=== PATIENT | male | born 1955 | race Caucasian/White ===

== ENCOUNTER 2020-06-02 00:32 | Outpatient (CLI) | payer MEDICARE, MEDICAID, SELFPAY ==
--- NOTE | 2020-06-02 10:30 | DI.NM_ITS ---
APPROVED REPORT Exam: Exercise Treadmill Patient Location: Out-Patient Room/Bed: BMI: 29.96 Baseline Rhythm: Sinus Bradycardia Indications: Chest Pain, CAD, Dyspnea, CAD s/p PCI Medical History Medical History: Atrial Fibrillation, CAD s/p VA, CAD s/p stent, HTN, Hyperlipidemia Cardiac Medications: Aspirin, Diltiazem, Metoprolol, Simvastatin/ Zocor Allergies: No known drug allergies Cardiac Risk Factors: HTN, Hyperlipidemia, CVD, FHX of CAD Previous Cardiac Procedures: PCI, Myocardial infarction Pretest Chest Pain Characteristics: No chest pain Exercise History: Physically active Lung Sounds: Clear to auscultation Heart Sounds: Regular Stress Test Details Test: Exercise stress testing was performed using a Theo protocol. Nuclear Acquisition: Rest Tc-99m/Stress Tc-99m 1 day Rest Isotope: Tc-99m Sestamibi. Dose: 12.1 Date: 06/02/2020 Injection Time: 1040 Stress Isotope: Tc-99m Sestamibi. Dose: 36.1 Date: 06/02/2020 Injection Time: 1316 HR Resting HR Supine: 52 bpm Max Heart Rate (APMHR): 154 bpm Resting HR Standin bpm Target HR (85% APMHR): 130 bpm Max HR Achieved: 136 bpm % of APMHR: 88 Recovery HR: 87 bpm HR response to stress: Normal HR response to stress BP Resting BP Supine: 150/88 mmHg Resting BP Standin/90 mmHg Max BP: 186/80 mmHg Recovery BP: 148/82 mmHg BP response to stress: Normal blood pressure response to stress. ECG Resting ECG: Sinus Bradycardia Stress ECG: Sinus Tachycardia Maximum ST Deviation: 0 mm Arrhythmia: VPC's Recovery ECG: Sinus Rhythm Recovery Arrhythmia: VPC Clinical Reason for Termination: Target HR Achieved, Fatigue Stress Symptoms: Chest pain Exercise duration: 6 min10 sec Highest Stage Reached: Stage 3: 3.4 mph at 14% grade. Exercise capacity: 7.28 METs Functional Capacity: Mildly deminished capacity Stress ECG Conclusion 1. Resting electrocardiogram was normal. Patient exercised on the Theo protocol and completed a wor kload of 7.28 METS 2. He achieved 88% of predicted heart rate for age. Heart rate and blood pressure response to exerci se was normal 3. Electrocardiographically there was no evidence of myocardial ischemia 4. Sporadic PVCs were noted Critical Notification Critical Value: No MPI Conclusion Normal myocardial perfusion without evidence of ischemia or infarction Calculated EF by this technique was 25% Radiologist Interpretation Radiologist agrees with Transport Medic's Interpretation. Radiologist Interpretation by: Matthew Barnes MD Interpretation Date/Time: 06/08/2020 14:54:02
== END 2020-06-02 00:52 ==
PROVIDERS: PCP Nurse Practitioner Family; Visit Provider Internal Medicine Interventional Cardiology
DX: R06.00 Dyspnea, unspecified (principal); I48.91 Unspecified atrial fibrillation; R07.9 Chest pain, unspecified; E78.5 Hyperlipidemia, unspecified; I10 Essential (primary) hypertension; I25.10 Atherosclerotic heart disease of native coronary artery without angina pectoris; Z82.49 Family history of ischemic heart disease and other diseases of the circulatory system; Z95.5 Presence of coronary angioplasty implant and graft; I25.2 Old myocardial infarction; I49.3 Ventricular premature depolarization
CPT/HCPCS: 78452; 93016; 93018; 93017

== ENCOUNTER 2023-07-26 09:19 | Outpatient (CLI) | payer MEDICARE, MEDICAID, SELFPAY ==
--- NOTE | 2023-07-26 06:00 | DI.RAD_ITS ---
Exam(s) XR PAIN CLINIC LUMBAR SP 2V EXAM: XR PAIN CLINIC LUMBAR SP 2V CLINICAL HISTORY: Dx: Lumbar Spondylosis TECHNIQUE: 2D and realtime digital imaging was performed. CONTRAST MATERIAL: Refer to procedure report. COMPARISON: No exams were available for comparison FINDINGS: Fluoroscopy was provided for Dr. Champagne during the performance of a lumbar medial branch block. Chrissy law refer to the procedure report for complete details. Ka,r=16.6 mGy IMPRESSION:
[2023-07-26 09:49] VITALS: BP 128/97; PULSE 66; RESP 20; TEMP 36.6; O2SAT 98
[2023-07-26] MEDS: Omnipaque 240 MG/ML 50 ML BTL IJ (10:48)
[2023-07-26] MEDS: Bupivacaine 0.5% Pres-Free 10 ML VIAL IJ (10:49)
[2023-07-26 10:52] VITALS: BP 143/96; PULSE 64; RESP 15; O2SAT 97
--- NOTE | 2023-07-26 14:31 | PDOC.PAIN ---
Date of service: 07/26/23 Time of Service: 10:30 Pain Managment Procedure Note Procedure Note Procedure Note: PROCEDURE NOTE Bilateral Lumbar Medial Branch Blocks Date of Service: July 26, 2023 Patient: MARYAN DAS Provider: Saurabh Champagne DO, MPH MARYAN DAS has been referred to the [facility] for lumbar medial branch blocks. Pre-operative diagnosis: Lumbar Spondylosis without Myelopathy Post-operative diagnosis: Same Pre-procedure pain: VAS= 5/10 COMMENTS: I previously evaluated him on 04/06/23 and his symptoms are the same today as it was on that day. VONNIE was interviewed and the medical records were reviewed. There were no medical, pharmacologic, radiographic or other structural contraindications to attempting fluoroscopically guided local anesthetic lumbar medial branch blocks. Risks and potential side effects were discussed. I also discussed the potential benefit(s) of the procedure with MARYAN, and voiced concerns were addressed. After MARYAN was completely informed about the procedure, the printed consent form was signed. A standard time-out procedure was performed. MARYAN was placed in the prone position on the fluoroscopy table. Automated blood pressure cuff and pulse oximeter were applied. The skin entry points for approaching the anatomic target points of the segmental medial branches of bilateral L3,L4,L5 were identified with fluoroscopy and marked. The skin at the target site area was thoroughly prepared with Chlorhexadine. The skin was then draped. Next, a 25 gauge 3.5 spinal needle was placed under fluoroscopic guidance down on to the target point (the articular pillar) for each respective segmental medial branch. Position was confirmed in A/P and lateral views. Aspiration revealed no blood or clear fluid. Next, 0.25ml of omnipaque 240 was injected at each level. No contrast following a vascular or neural pattern was visualized under continuous fluoroscopy. Next, 0.25 ml of preservative-free 0.5% bupivicaine was injected at each level. There was no unusual discomfort expressed by MARYAN. The needles were withdrawn without difficulty. (49 mls of Omnipaque was wasted) MARYAN was observed and was without hemodynamic, neurologic, or allergic reactions.? Fluoroscopic images were digitally archived. Provacative testing using the Modified Barry's facet loading test- Left side Right Side Directly before the block VAS (0-10) = 5/10 VAS (0-10) = 5/10 Five minutes after the block VAS (0-10) = 0/10 VAS (0-10) = 0/10 Percentage relief obtained with this diagnostic block 100% 100% Any improved physical functioning directly after the blocks? Able to move with ease. Follow up plans and appointments were discussed with MARYAN. MARYAN was instructed to keep careful note of how the usual pain was modified by these injections. Specifically, to keep a pain diary for the next 4 hours using a numeric pain scale of 0-10 and report these results. Post procedure instruction was given as documented in the nursing documentation and having met discharge criteria, the patient was [facility] from the [facility]. Based on the medial branches blocked today, if they patient has adequate relief and we are able to proceed to radiofrequency ablation, the treatment should result in the denervation of the bilateral L4-L5 and L5-S1 facet joints. We would expect to denervate a total of 4 facets during the radiofrequency ablation. COMMENTS: No apparent complications. Post-procedure pain: VAS= 0/10 MARYAN will call back with 0-4 hour post-procedure pain scores. I personally performed the entire procedure. SAURABH CHAMPAGNE DO, MPH ABPM&R-subspecialty board certification in Pain Medicine [facility] [facility]
== END 2023-07-26 09:20 | disposition home or self-care (01) ==
LOC: PC 09:20
PROVIDERS: PCP Nurse Practitioner Family; Visit Provider Preventive Medicine Occupational Medicine
DX: M54.50 Low back pain, unspecified (principal); M47.816 Spondylosis without myelopathy or radiculopathy, lumbar region
CPT/HCPCS: 64493; 64494; 72100; Q9967

== ENCOUNTER 2023-09-13 08:28 | Outpatient (CLI) | payer MEDICARE, MEDICAID, SELFPAY ==
--- NOTE | 2023-09-13 06:00 | DI.RAD_ITS ---
Exam(s) XR PAIN CLINIC LUMBAR SP 2V EXAM: XR PAIN CLINIC LUMBAR SP 2V CLINICAL HISTORY: Dx: Lumbar Spondylosis TECHNIQUE: 2D and realtime digital imaging was performed. CONTRAST MATERIAL: Refer to procedure report. COMPARISON: No exams were available for comparison FINDINGS: Fluoroscopy was provided for Dr. Champagne during the performance of a lumbar medial branch block. Chrissy law refer to the procedure report for complete details. Ka,r=19.8 mGy IMPRESSION:
[2023-09-13 08:44] VITALS: BP 164/89; PULSE 62; RESP 20; TEMP 36.7; O2SAT 98
--- NOTE | 2023-09-13 09:45 | PDOC.PAIN_ITS ---
Date of service: 09/13/23 Time of Service: 09:45 Pain Managment Procedure Note Procedure Note Procedure Note: PROCEDURE NOTE Bilateral Lumbar Medial Branch Blocks #2 Date of Service: September 13, 2023 Patient: MARYAN DAS Provider: Saurabh Champagne DO, MPH MARYAN DAS has been referred to the [facility] for lumbar medial branch blocks. Pre-operative diagnosis: Lumbar Spondylosis without Myelopathy Post-operative diagnosis: Same Pre-procedure pain: VAS= 8/10 COMMENTS: He did very well with his first LMBBs VONNIE was interviewed and the medical records were reviewed. There were no medical, pharmacologic, radiographic or other structural contraindications to attempting fluoroscopically guided local anesthetic lumbar medial branch blocks. Risks and potential side effects were discussed. I also discussed the potential benefit(s) of the procedure with MARYAN, and voiced concerns were addressed. After MARYAN was completely informed about the procedure, the printed consent form was signed. A standard time-out procedure was performed. MARYAN was placed in the prone position on the fluoroscopy table. Automated blood pressure cuff and pulse oximeter were applied. The skin entry points for approaching the anatomic target points of the segmental medial branches of bilateral L3,L4,L5 were identified with fluoroscopy and marked. The skin at the target site area was thoroughly prepared with Chlorhexadine. The skin was then draped. Next, a 25 gauge 3.5 spinal needle was placed under fluoroscopic guidance down on to the target point (the articular pillar) for each respective segmental medial branch. Position was confirmed in A/P and lateral views. Aspiration revealed no blood or clear fluid. Next, 0.25ml of omnipaque 240 was injected at each level. No contrast following a vascular or neural pattern was visualized under continuous fluoroscopy. Next, 0.25 ml of preservative-free 0.5% bupivicaine was injected at each level. There was no unusual discomfort expressed by MARYAN. The needles were withdrawn without difficulty. (49 mls of Omnipaque was wasted) MARYAN was observed and was without hemodynamic, neurologic, or allergic reactions.? Fluoroscopic images were digitally archived. Provacative testing using the Modified Barry's facet loading test- Left side Right Side Directly before the block VAS (0-10) = 8/10 VAS (0-10) = 8/10 Five minutes after the block VAS (0-10) = 2/10 VAS (0-10) = 2/10 Percentage relief obtained with this diagnostic block 80% 80% Any improved physical functioning directly after the blocks? Able to move his back with ease. Follow up plans and appointments were discussed with MARYAN. MARYAN was instructed to keep careful note of how the usual pain was modified by these injections. Specifically, to keep a pain diary for the next 4 hours using a numeric pain scale of 0-10 and report these results. Post procedure instruction was given as documented in the nursing documentation and having met discharge criteria, the patient was [facility] from the [facility]. Based on the medial branches blocked today, if they patient has adequate relief and we are able to proceed to radiofrequency ablation, the treatment should result in the denervation of the bilateral L4-L5 and L5-S1 facet joints. We would expect to denervate a total of 4 facets during the radiofrequency ablation. COMMENTS: No apparent complications. Post-procedure pain: VAS= 2/10 MARYAN will call back with 0-4 hour post-procedure pain scores. I personally performed the entire procedure. SAURABH CHAMPAGNE DO, MPH ABPM&R-subspecialty board certification in Pain Medicine [facility]
[2023-09-13 09:52] VITALS: BP 130/91; PULSE 63; RESP 16; O2SAT 95
[2023-09-13] MEDS: Bupivacaine 0.5% Pres-Free 10 ML VIAL IJ (10:22)
[2023-09-13] MEDS: Omnipaque 240 MG/ML 50 ML BTL IJ (10:23)
== END 2023-09-13 08:29 | disposition home or self-care (01) ==
LOC: PC 08:28
PROVIDERS: PCP Nurse Practitioner Family; Visit Provider Preventive Medicine Occupational Medicine
DX: M54.50 Low back pain, unspecified (principal); M47.816 Spondylosis without myelopathy or radiculopathy, lumbar region
CPT/HCPCS: 00123; 64493; 64494; 72100; Q9967

== ENCOUNTER 2023-10-12 08:35 | Outpatient (CLI) | payer MEDICARE, MEDICAID, SELFPAY ==
[2023-10-12 09:00] VITALS: BP 139/84; PULSE 100; RESP 20; TEMP 36.7; O2SAT 96
[2023-10-12] MEDS: fentaNYL 100 MCG/2 ML VIAL IVP ×2 (09:47→10:09)
[2023-10-12] MEDS: Midazolam 2 MG/2 ML VIAL IVP (09:47)
[2023-10-12] MEDS: Lactated Ringers 500 ML 80 ML IV ×2 (09:47→13:47)
[2023-10-12 10:21] VITALS: BP 139/87; PULSE 66; RESP 18; O2SAT 98
--- NOTE | 2023-10-12 10:25 | DI.RAD_ITS ---
Exam(s) XR PAIN CLINIC LUMBAR SP 2V EXAM: XR PAIN CLINIC LUMBAR SP 2V CLINICAL HISTORY: DX: Lumbar spondylosis. TECHNIQUE: Fluoroscopy was provided for the referring physician for guidance with performing pain cl inic injection procedure. COMPARISON: No exams were available for comparison FINDINGS: Please see procedure note for details. Fluoro time: 66.7 seconds RADIATION DOSE DELIVERED: Kar=19.2 mGy
[2023-10-12] MEDS: diphenhydrAMINE 50 MG/ML VIAL IVP ×3 (10:35→11:15)
--- NOTE | 2023-10-12 10:38 | PDOC.PAIN_ITS ---
Date of service: 10/12/23 Time of Service: 10:38 Pain Managment Procedure Note Procedure Note Procedure Note: PROCEDURE NOTE BILATERAL LUMBAR RADIOFREQUENCY ABLATION Date of Service: October 12, 2023 Patient:MARYAN WADE? Provider:? Saurabh Champagne DO, MPH MARYAN DAS has been [facility] to the [facility] for Bilateral Lumbar Radiofrequency Ablation with the [employer]vanos Machine.? Pre Operative Diagnosis: Lumbosacral Spondylosis without Myelopathy Post Operative Diagnosis: Same Pre procedure pain; VAS= 7/10 Comments: He has two successful LMBBs. His pain has returned. PROCEDURE: Radiofrequency Ablation of medial branches - bilateral L3, L4, L5 and lateral branches of bilateral S1. MARYAN?was interviewed and the medical record was reviewed.? There were no medical, pharmacologic, radiographic or other structural contraindications to attempting fluoroscopically guided BILATERAL Lumbar Radiofrequency Ablation .?Risks and expected side effects as well as potential benefit of the procedure were reviewed with MARYAN, and the patient's voiced concerns were addressed.? The printed consent form was signed.? Standard time-out procedure was performed. MARYAN was brought into the fluoroscopy suite and positioned into the prone position on the fluoroscopy table and allowed to adjust to a position of comfort. A grounding pad was placed on the left abdomen. The sterile field was prepared using chlorhexidine preparation of the skin and sterile draping. Local anesthesia superficial and deep was provided by local infiltration of 2% lidocaine. A 17g 100 mm radiofrequency introducer needle was placed to the planned anatomic targets guided with intermittent fluoroscopy with a perpendicular approach to terminally place at the junction of the superior articular process and the transverse process of the bilateral L4, L5, the base of the sacral ala on the bilateral for the L5 medial branch nerve and the area between base of the sacral ala to the S1 foramen bilaterally. The stylets were removed and radiofrequency probes with a 4mm active tip were then inserted. Needle tip position of the probes was verified in the AP, oblique, and lateral views. At each site, the medial branch nerve was stimulated at 2 Hz to a maximum 1-2 volts determined to finalize safe needle and electrode placement. The patient was awake and responsive during this portion of the procedure. Each target was anesthetized with 1-2 mL of 2 % Lidocaine for anesthesia for lesioning and then each target was lesioned at 80 degrees Celsius for 2 minutes and 30 seconds. Tissue impedances were noted to be between 250 and 500 Ohms. There was no unusual discomfort expressed by MARYAN. I then injected 1/4 cc of Depomedrol (40 mg/cc) followed by 0.5 cc of 0.5% Bupivacaine at each site. The needles were withdrawn without difficulty and bandages placed over the needle placement sites, the patient was observed and was without hemodynamic, neurologic, or allergic reactions. Fluoroscopic images were digitally archived. POST PROCEDURE EVALUATION: IMPRESSION: 1. Summary of procedure. Medication given is documented in the MAR. 2. Follow up plan: MARYAN to contact [facility] as needed.?This procedure may be repeated if the patient achieves at least 50% improvement in pain/function for at least 6 months. 3. Estimated Blood Loss: <5 mls 4. Fluoroscopy time: Documented in the EMR. Follow up plans and appointments were discussed with the MARYAN. Post procedure instruction was given as documented in nursing documentation and having met discharge criteria, MARYAN was discharged from the [facility]. COMMENTS: He did breakout in hives after the procedure. He was given IV Benadryl (a total of 37.5 mg) and this improved. There was no shortness of breath was noted. He was observed in our clinic for 2 hours. The only +/- new medications were IV Fenatnyl, IV Versed, and Depomedrol, though him and his think that he has had all of these medications. He might be a good candidate for allergy testing. Post-procedure pain: VAS= 1/10. I personally completed the entire procedure. SAURABH CHAMPAGNE DO, MPH ABPM&R - Subspecialty board certification in Pain Medicine [facility] [facility]
[2023-10-12] MEDS: Bupivacaine 0.5% Pres-Free 10 ML VIAL IJ (10:41)
[2023-10-12] MEDS: Lidocaine 2% Pres-Free 5 ML VIAL IJ (10:42)
[2023-10-12] MEDS: methylPREDNISolone ACETATE 40 MG/ML VIAL IJ (10:43)
[2023-10-12 13:45] VITALS: BP 133/68; PULSE 61; RESP 18; O2SAT 97
== END 2023-10-12 08:36 | disposition home or self-care (01) ==
LOC: PC 08:35
PROVIDERS: PCP Family Medicine; Visit Provider Preventive Medicine Occupational Medicine
DX: M54.50 Low back pain, unspecified (principal); M47.817 Spondylosis without myelopathy or radiculopathy, lumbosacral region
CPT/HCPCS: 00123; 64635; 64636; 72100; J1030; J1200; J2250; J3010; J3490

== ENCOUNTER → 2024-05-16 00:16 | Outpatient (CLI) | payer MEDICARE, MEDICAID, SELFPAY ==
--- NOTE | 2024-05-16 | ETT_ITS ---
APPROVED REPORT Exam: Exercise Treadmill Patient Location: Out-Patient Room/Bed: Stress Nurse: Rukhsana Ureña RN and Arturo Romo RN Ordering Provider:YOVANA ANTONIO, Contact Number: [phone] BMI: 29.29 Baseline Rhythm: Sinus Rhythm. Comment: Occasional PAC's; Occasional PVC's. Indications: Chest Pain; Dyspnea. Medical History Medical History: Mildly Dilated Aortic Root; CAD; Arthritis; GERD; Coronary Atherosclerosis; DJD; Hyp erlipidemia; Myocarditis. Cardiac Medications: Apixaban; Atorvastatin; Diltiazem; Nitroglycerin; Metoprolol. Allergies: Bees. Cardiac Risk Factors: Family Hx; Hyperlipidemia; CVD; Smoker (occasional); Obesity. Previous Cardiac Procedures: LHC 2006; PCI 2019. Pretest Chest Pain Characteristics: None. Exercise History: Indeterminate. Physical Disabilities: Bilateral knee pain. Lung Sounds: Clear bilaterally throughout, anterior and posterior. Heart Sounds: S1 and S2 auscultated. Stress Test Details Test: Exercise stress testing was performed using a Theo protocol. Rest Stress HR Resting HR Supine: 61 bpm Max Heart Rate (APMHR): 150 bpm Resting HR Standin bpm Target HR (85% APMHR): 128 bpm Max HR Achieved: 132 bpm % of APMHR: 88 Recovery HR: 71 bpm HR response to stress: Normal HR response to stress. BP Resting BP Supine: 118/84 mmHg Resting BP Standin/76 mmHg Max BP: 172/70 mmHg Recovery BP: 118/70 mmHg BP response to stress: Normal blood pressure response to stress. ECG Resting ECG: Sinus Rhythm. Ectopy: Occasional PAC's; Occasional PVC's. Stress ECG: Sinus Tachycardia. ST Change: No significant ST segment changes noted. Arrhythmia: Occasional PAC's; Occasional PVC's. Recovery ECG: Sinus Rhythm. Recovery ST Change: No significant ST segment changes noted. Recovery Arrhythmia: Occasional PAC's; Occasional PVC's. Clinical Reason for Termination: Target HR Achieved, Dyspnea. Stress Symptoms: Mild Shortness of Breath. Exercise duration: 05 min49 sec Highest Stage Reached: Stage 2: 2.5 mph at 12% grade. Exercise capacity: 7.05 METs Angina Score: None Degroot Treadmill Score: 5.7 Rate Pressure Product: 51438 Stress ECG Conclusion 1. Resting electrocardiogram was normal 2. Patient exercised on the Theo protocol and completed a workload of 7 METS 3. Normal heart rate and blood pressure response to exercise. Patient achieved 88% of predicted hear t rate for age 4. There was no electrocardiographic evidence of myocardial ischemia 5. Several PVCs were seen Degroot Treadmill Score is 5.7 which is Low risk. Stress Test Summary STAGE Time (mins) Speed (mph) Grade (%) HR BP SpO2 SYMPTOMS METS Supine 61 118/84 95 Standing 59 120/76 1 3 1.7 10 100 130/70 4.5 2 6 2.5 12 132 Mild Shortness of Breath. 7 1 min recovery 94 172/70 94 Mild Shortness of Breath. 3 min recovery 70 142/72 94 Mild Shortness of Breath is subsiding. 6 min recovery 71 118/70 94 Mild Shortness of Breath has subsided. Pt. was conversing pleasantly with nursing staff upon leaving the Stress Lab. Pt. left ambulatory in no apparent distress.
== END ==
PROVIDERS: PCP Family Medicine; Visit Provider Internal Medicine
DX: R07.9 Chest pain, unspecified (principal)
CPT/HCPCS: 93016; 93018; 93017

== ENCOUNTER 2024-05-30 14:18 | Outpatient (CLI) | payer MEDICARE, MEDICAID, SELFPAY ==
[2024-05-30] VITALS (11 sets, daily range): BP systolic 137–156; BP diastolic 82–114; PULSE 56–76; RESP 15–29; TEMP 37.2; O2SAT 97–99
[2024-05-30] MEDS: fentaNYL 100 MCG/2 ML VIAL IVP ×2 (15:55→16:00)
[2024-05-30] MEDS: Lactated Ringers 500 ML 80 ML IV (15:58)
--- NOTE | 2024-05-30 16:38 | PDOC.PAIN ---
Date of service: 05/30/24 Time of Service: 16:38 Pain Managment Procedure Note Procedure Note Procedure Note: PROCEDURE NOTE BILATERAL LUMBAR RADIOFREQUENCY ABLATION Date of Service: May 30, 2024 Patient:Isai Hernandez? Provider:? Saurabh Champagne DO, MPH Isai Henderson has been [facility] to the [facility] for Bilateral Lumbar Radiofrequency Ablation with the [employer]AirXPs Machine.? Pre Operative Diagnosis: Lumbosacral Spondylosis without Myelopathy Post Operative Diagnosis: Same Pre procedure pain; VAS= 7/10 Comments: He had hives at his last RFA. We decided to replace the Chloroprep with an Iodine based welt stitch cleaner, remove Bupivacaine, and remove the Versed. We also replaced Depomedrol with Dexamethasone. He did have >6 months of >50% pain improvement with his last RFA on 10/12/23. PROCEDURE: Radiofrequency Ablation of medial branches - bilateral L3, L4, and L5 Isai?was interviewed and the medical record was reviewed.? There were no medical, pharmacologic, radiographic or other structural contraindications to attempting fluoroscopically guided BILATERAL Lumbar Radiofrequency Ablation.?Risks and expected side effects as well as potential benefit of the procedure were reviewed with Isai, and the patient's voiced concerns were addressed.? The printed consent form was signed.? Standard time-out procedure was performed. Isai was brought into the fluoroscopy suite and positioned into the prone position on the fluoroscopy table and allowed to adjust to a position of comfort. A grounding pad was placed on the left abdomen. The sterile field was prepared using Iodine preparation of the skin and sterile draping. Local anesthesia superficial and deep was provided by local infiltration of 2% lidocaine. A 17g 100 mm radiofrequency introducer needle was placed to the planned anatomic targets guided with intermittent fluoroscopy with a perpendicular approach to terminally place at the junction of the superior articular process and the transverse process of the bilateral L4, L5, the base of the sacral ala on the bilateral for the L5 medial branch nerve. The stylets were removed and radiofrequency probes with a 4mm active tip were then inserted. Needle tip position of the probes was verified in the AP, oblique, and lateral views. At each site, the medial branch nerve was stimulated at 2 Hz to a maximum 1-2 volts determined to finalize safe needle and electrode placement. The patient was awake and responsive during this portion of the procedure. Each target was anesthetized with 1-2 mL of 2 % Lidocaine for anesthesia for lesioning and then each target was lesioned at 80 degrees Celsius for 2 minutes and 30 seconds. Tissue impedances were noted to be between 250 and 500 Ohms. I then injected 1/3 cc of Depomedrol followed by 1 cc of 2% Lidocaine at each segmental sensory nerve. There was no unusual discomfort expressed by Isai. The needles were withdrawn without difficulty and bandages placed over the needle placement sites, the patient was observed and was without hemodynamic, neurologic, or allergic reactions. Fluoroscopic images were digitally archived. POST PROCEDURE EVALUATION: IMPRESSION: 1. Summary of procedure. Medication given is documented in the MAR. 2. Follow up plan: Isai to contact [facility] as needed.?This procedure may be repeated if the patient achieves at least 50% improvement in pain/function for at least 6 months. 3. Estimated Blood Loss: <5 mls 4. Fluoroscopy time: Documented in the EMR. Follow up plans and appointments were discussed with the Isai. Post procedure instruction was given as documented in nursing documentation and having met discharge criteria, Isai was discharged from the [facility]. COMMENTS: No apparent complications. Post-procedure pain: VAS= 2/10. I personally completed the entire procedure. SAURABH CHAMPAGNE DO, MPH ABPM&R - Subspecialty board certification in Pain Medicine [facility] [facility]
--- NOTE | 2024-05-30 16:51 | DI.RAD_ITS ---
Exam(s) XR PAIN CLINIC LUMBAR SP 2V EXAM: XR PAIN CLINIC LUMBAR SP 2V CLINICAL HISTORY: DX: Lumbar Spondylosis TECHNIQUE: 2D and realtime digital imaging was performed. Radiologist not present. CONTRAST MATERIAL: None. COMPARISON: No exams were available for comparison FINDINGS: Fluoroscopy was provided for pain management therapy. Please refer to procedure report or details. Radiation Exposure Index: Ka,r=18.10 mGy IMPRESSION: As above. RADIATION DOSE DELIVERED:
[2024-05-30] MEDS: Lidocaine 2% Multi-Dose 20 ML VIAL IJ (16:53)
[2024-05-30] MEDS: Dexamethasone Sod. Phos./Pres-Free 10 MG/ML VIAL IJ (16:53)
[2024-05-30] MEDS: Nerve Block Tray 1 EACH MC (16:54)
== END 2024-05-30 14:19 | disposition home or self-care (01) ==
LOC: PC 14:19
PROVIDERS: PCP Family Medicine; Visit Provider Preventive Medicine Occupational Medicine
DX: M54.50 Low back pain, unspecified (principal); M47.817 Spondylosis without myelopathy or radiculopathy, lumbosacral region
CPT/HCPCS: 64635; 64636; 72100; J1100; J2003; J3010

== ENCOUNTER 2025-05-29 01:00 | Outpatient (CLI) | payer MEDICARE, MEDICAID, SELFPAY ==
--- NOTE | 2025-05-29 | DI.NM_ITS ---
APPROVED REPORT Exam: Exercise Treadmill Patient Location: Out-Patient Room/Bed: Stress Nurse: Arlen Brown RN Ordering Provider:FARA GIPSON, Contact Number: [phone] BMI: 30.24 Baseline Rhythm: Sinus Bradycardia Indications: angina, dyspnea Medical History Medical History: afib, CVD, GERD, HLD, lumbosacral spondylosis, HTN, NC with stent Cardiac Medications: atorvastatin, diltiazem, eliquis, metoprolol succinate, nitroglycerin, omeprazole Allergies: bee venom protein Cardiac Risk Factors: family hx, HLD, CVD Previous Cardiac Procedures: cardiac cath with stent (2002) Pretest Chest Pain Characteristics: No chest pain Exercise History: Physically active Physical Disabilities: n/a Lung Sounds: Clear to auscultation Heart Sounds: Bradycardia Stress Test Details Test: Exercise stress testing was performed using a Theo protocol. Nuclear Acquisition: Rest Tc-99m/Stress Tc-99m 1 day Rest Isotope: Tc-99m Sestamibi. Dose: 12.0 Date: 05/29/2025 Injection Time: 0915 Stress Isotope: Tc-99m Sestamibi. Dose: 36.0 Date: 05/29/2025 Injection Time: 1114 HR Resting HR Supine: 55 bpm Max Heart Rate (APMHR): 149 bpm Resting HR Standin bpm Target HR (85% APMHR): 127 bpm Max HR Achieved: 136 bpm % of APMHR: 91 Recovery HR: 72 bpm HR response to stress: Normal HR response to stress BP Resting BP Supine: 142/82 mmHg Resting BP Standin/84 mmHg Max BP: 174/60 mmHg Recovery BP: 130/80 mmHg BP response to stress: Normal blood pressure response to stress. ECG Resting ECG: Sinus Bradycardia Ectopy: occasional PACs, rare PVC Stress ECG: Sinus Tachycardia ST Change: No significant ST segment changes noted Arrhythmia: rare PVCs Recovery ECG: Sinus Rhythm Recovery ST Change: No significant ST segment changes noted Recovery Arrhythmia: rare PVCs, occasional PACs Clinical Reason for Termination: Target HR Achieved Stress Symptoms: General Fatigue, Dyspnea Exercise duration: 07 min09 sec Highest Stage Reached: Stage 2: 2.5 mph at 12% grade. Exercise capacity: 8.82 METs Angina Score: None Rate Pressure Product: [id number] Stress ECG Conclusion 1. Resting electrocardiogram was normal 2. Patient exercised on the Theo protocol and completed workload of 9 METS 3. Normal heart rate and blood pressure response to exercise. The patient achieved 91% of maximal predicted heart rate for age 4. There was no electrocardiographic evidence of myocardial ischemia 5. There were no significant dysrhythmias 6. See MPI report Stress Test Summary STAGE Time (mins) Speed (mph) Grade (%) HR BP SpO2 SYMPTOMS METS Supine 55 142/82 98 Standing 57 130/84 1 3 1.7 10 99 150/82 96 4.5 2 6 2.5 12 118 174/60 98 moderate SOB 7 3 9 3.4 14 136 10 1 min recovery 113 174/60 98 3 min recovery 81 150/82 97 6 min recovery 72 130/80 96 Pt experienced moderate SOB during Theo protocol. Test stopped due to pt's request r/t SOB and general fatigue; target HR achieved. Symptoms resolved by end of test. Pt left ambulatory in no acute distress. MPI Conclusion Myocardial perfusion is normal. There is no ischemia or evidence of prior infarction Ejection fraction is in the normal range with normal wall motion
== END 2025-05-29 01:20 ==
PROVIDERS: PCP Family Medicine; Visit Provider Internal Medicine Cardiovascular Disease
DX: I20.89 Other forms of angina pectoris (principal); R06.00 Dyspnea, unspecified
CPT/HCPCS: 78452; 93016; 93018; 93017

== ENCOUNTER 2025-06-18 08:00 | Outpatient (CLI) | payer MEDICARE, MEDICAID, SELFPAY ==
--- NOTE | 2025-06-18 08:00 | RT.EKG_ITS ---
APPROVED REPORT Exam: Resting ECG Reason for Exam: CAD, afib Patient Location: O HR:59 bpm ECG Measurements Heart Rate 59 AXIS AZ 190 P 16 QRSd 100 QRS -20 QT 426 T 47 QTc 422 Conclusion Sinus rhythm...normal P axis, V-rate 50- 99 Borderline left axis deviation...QRS axis (-15,-29)
== END 2025-06-18 08:01 | disposition home or self-care (01) ==
LOC: DI.CARD 08:00
PROVIDERS: PCP Family Medicine; Visit Provider Registered Nurse
DX: I25.10 Atherosclerotic heart disease of native coronary artery without angina pectoris (principal); I48.91 Unspecified atrial fibrillation
CPT/HCPCS: 93010

== ENCOUNTER → 2025-06-18 12:45 | Outpatient (BNVA) | payer MEDICARE, MEDICAID, SELFPAY | PROVIDERS: PCP Family Medicine; Referring Provider Family Medicine; Visit Provider Registered Nurse | DX: I25.10 Atherosclerotic heart disease of native coronary artery without angina pectoris (principal); I48.91 Unspecified atrial fibrillation; G47.30 Sleep apnea, unspecified; Z79.01 Long term (current) use of anticoagulants; Z79.02 Long term (current) use of antithrombotics/antiplatelets | CPT/HCPCS: 99204; 93005 ==

== ENCOUNTER → 2025-07-21 13:29 | Outpatient (BNVA) | payer MEDICARE, MEDICAID, SELFPAY | PROVIDERS: PCP Family Medicine; Referring Provider Family Medicine; Visit Provider Registered Nurse | DX: I25.10 Atherosclerotic heart disease of native coronary artery without angina pectoris (principal); I48.91 Unspecified atrial fibrillation; Z79.01 Long term (current) use of anticoagulants | CPT/HCPCS: 99214 ==